=== PATIENT | female | born 1975 | race Caucasian/White ===

== ENCOUNTER 2017-04-12 06:41 | Day surgery (SDC) | payer OTHER ==
[2017-04-11 10:42] LABS: CHLORIDE,CL 110 mmol/L (98-110); SODIUM,NA 139 mmol/L (136-146)
[~2017-04-12 06:41] MED LIST: Lactated Ringers 1,000 ML IV SCH; Sodium Chloride 0.9% 10 ML Syringe FLUSH PRN; Sodium Chloride 0.9% 2.5 ML Syringe FLUSH PRN; ceFAZolin 2 GM in Premix Bag 1 BAG IV ONE
[2017-04-12] MEDS ORDERED: Scopolamine 1.5 MG Transdermal Patch TRDERM PRN (08:00)
[2017-04-12] MEDS ORDERED: Acetaminophen 1,000 MG in Premix Bag 1 BAG IV SCH (08:00)
--- NOTE | 2017-04-12 08:01 | PCM.PREANE ---
Preanesthetic Assessment - Anesthesia/Transfusion/Family Hx Anesthesia History: Prior Anesthesia Without Reaction Other Type of Anesthesia Reaction Comment: states she woke up during her breast lumpectomy Family History of Anesthesia Reaction: No Transfusion History: No Prior Transfusion(s) Intubation History: Unknown - Review of Systems General: No Symptoms Pulmonary: No Symptoms Cardiovascular: No Symptoms Gastrointestinal: No Symptoms Neurological: No Symptoms Other: Reports: None - Physical Assessment O2 Sat by Pulse Oximetry: 100 Respiratory Rate: 16 Vital Signs: Last Vital Signs Temp 36.2 C 04/12/17 07:29 Pulse 72 04/12/17 07:29 Resp 16 04/12/17 07:29 BP 102/61 04/12/17 07:29 Pulse Ox 100 04/12/17 07:29 Height: 1.63 m Weight: 116.12 kg ASA Class: 2 Mental Status: Alert & Oriented x3 Airway Class: Mallampati = 2 Dentition: Reports: Normal Dentition Thyro-Mental Finger Breadths: 3 Mouth Opening Finger Breadths: 2 ROM/Head Extension: Full Lungs: Clear to Auscultation, Normal Respiratory Effort Cardiovascular: Regular Rate, Regular Rhythm - Lab Values: Laboratory Last Values WBC 6.86 K/uL (4.0-11.0) 04/11/17 09:53 RBC 4.61 M/uL (4.30-5.90) 04/11/17 09:53 Hgb 12.2 g/dL (12.0-16.0) 04/11/17 09:53 Hct 38.8 % (36.0-46.0) 04/11/17 09:53 MCV 84.2 fL (80.0-98.0) 04/11/17 09:53 MCH 26.5 pg (27.0-32.0) L 04/11/17 09:53 MCHC 31.4 g/dL (31.0-37.0) 04/11/17 09:53 RDW Std Deviation 51.3 fl (28.0-62.0) 04/11/17 09:53 RDW Coeff of Miguel 17 % (11.0-15.0) H 04/11/17 09:53 Plt Count 348 K/uL (150-400) 04/11/17 09:53 MPV 9.70 fL (7.40-12.00) 04/11/17 09:53 Nucleated RBC % 0.0 /100WBC 04/11/17 09:53 Nucleated RBCs # 0 K/uL 04/11/17 09:53 Sodium 139 mmol/L (136-146) 04/11/17 09:53 Potassium 4.1 mmol/L (3.5-5.1) 04/11/17 09:53 Chloride 110 mmol/L (98-110) 04/11/17 09:53 Carbon Dioxide 22 mmol/L (21-31) 04/11/17 09:53 BUN 7 mg/dL (6.0-23.0) 04/11/17 09:53 Creatinine 0.8 mg/dL (0.6-1.5) 04/11/17 09:53 Est Cr Clr Drug Dosing 80.72 mL/min 04/11/17 09:53 Estimated GFR (MDRD) > 60.0 ml/min 04/11/17 09:53 Glucose 98 mg/dL (60-110) 04/11/17 09:53 Calcium 8.4 mg/dL (8.8-10.8) L 04/11/17 09:53 HCG, Qual NEGATIVE (NEG) 04/11/17 09:53 Blood Type A POSITIVE 04/11/17 09:53 Antibody Screen NEGATIVE 04/11/17 09:53 - Allergies Allergies/Adverse Reactions: Allergies Allergy/AdvReac Type Severity Reaction Status Date / Time No Known Allergies Allergy Verified 04/10/17 08:49 - Blood Blood Available: No - Anesthesia Plan Pre-Op Medication Ordered: None - Acknowledgements Anesthesia Type Planned: General Anesthesia Pt an Appropriate Candidate for the Planned Anesthesia: Yes Alternatives and Risks of Anesthesia Discussed w Pt/Guardian: Yes Pt/Guardian Understands and Agrees with Anesthesia Plan: Yes PreAnesthesia Questionnaire Gastrointestinal History: Reports: Other (See Below) Other Gastrointestinal History: occasional heartburn Genitourinary History: Reports: None RN LPN CNA History: Reports: Dysfunctional Uterine Bleeding, Fibroids, Psychiatric History: Reports: Anxiety, Depression, PTSD Endocrine/Metabolic History: Reports: Obesity/BMI 30+ (BMI 43.9) Oncologic (Cancer) History: Reports: None Dermatologic History: Reports: Eczema - Past Surgical History Head Surgeries/Procedures: Reports: None Female Surgical History: Reports: Breast Biopsy, Tubal Ligation Oncologic Surgical History: Reports: Biopsy of Breast - SUBSTANCE USE Smoking Status *Q: Never Smoker Recreational Drug Use History: No - HOME MEDS Home Medications: Home Meds ALPRAZolam [Xanax] 0.25 mg PO ASDIRECTED 04/10/17 [History] DULoxetine [Cymbalta] 60 mg PO DAILY 04/10/17 [History] cloNIDine HCl [Clonidine HCl ER] 0.1 mg PO ACLUNCH PRN 04/10/17 [History] - CURRENT (IN HOUSE) MEDS Current Meds: Current Medications Lactated Ringer's (Ringers, Lactated) 1,000 mls @ 500 mls/hr IV .BOLUS [facility] Last Admin: 04/12/17 07:31 Dose: 500 mls/hr Acetaminophen 1,000 mg/ Premix 100 mls @ 400 mls/hr IV .ONETIME [facility] Scopolamine (Transderm-Scop) 1.5 mg TRDERM .ONETIME PRN PRN Reason: Post Op Nausea Sodium Chloride (Saline Flush) 10 ml FLUSH ASDIRECTED PRN PRN Reason: Keep Vein Open Sodium Chloride (Saline Flush) 2.5 ml FLUSH ASDIRECTED PRN PRN Reason: Keep Vein Open Discontinued Medications Cefazolin Sodium/Dextrose 2 gm (/ Premix) 50 mls @ 100 mls/hr IV ONETIME ONE Stop: 04/11/17 09:27
[2017-04-12] MEDS ORDERED: fentaNYL 100 MCG/2 ML SDV ONE (08:26)
[2017-04-12] MEDS ORDERED: Midazolam 1 MG/ML 2 ML SDV ONE (08:26)
[2017-04-12] MEDS ORDERED: Propofol 200 MG/20 ML SDV ONE (08:26)
[2017-04-12] MEDS ORDERED: diphenhydrAMINE 50 MG/ML SDV ONE (08:26)
[2017-04-12] MEDS ORDERED: Lidocaine 2% 5 ML SDV ONE (08:26)
[2017-04-12] MEDS ORDERED: Rocuronium 10 MG/ML 10 ML Syringe ONE (08:26)
[2017-04-12] MEDS ORDERED: Dexamethasone 4 MG/ML 5 ML MDV ONE (08:26)
[2017-04-12] MEDS ORDERED: Ondansetron 4 MG/2 ML SDV ONE (08:26)
[2017-04-12] MEDS ORDERED: HYDROmorphone 2 MG/ML Syringe ONE ×2 (08:26→10:56)
[2017-04-12] MEDS ORDERED: fentaNYL 100 MCG/2 ML SDV IVPUSH PRN (08:35)
[2017-04-12] MEDS ORDERED: Fluorescein 5 ML Vial IV ONE (08:42)
[2017-04-12] MEDS ORDERED: Octyl 2-Cyanoacrylate 1 Tube TOP ONE (08:42)
[2017-04-12] MEDS ORDERED: Ketorolac 30 MG/ML SDV ONE (12:13)
[2017-04-12] MEDS ORDERED: Ketorolac 30 MG/ML SDV IVPUSH PRN (12:26)
[2017-04-12] MEDS ORDERED: Morphine 4 MG/ML Syringe IVPUSH PRN (12:26)
[2017-04-12] MEDS ORDERED: Morphine 2 MG/ML Syringe IVPUSH PRN (12:26)
[2017-04-12] MEDS ORDERED: Ketorolac 30 MG/ML SDV IVPUSH ONE (12:26)
--- NOTE | 2017-04-12 12:31 | PCM.OPNOTE ---
- General Post-Op/Procedure Note Date of Surgery/Procedure: 04/12/17 Operative Procedure(s): TLH Pre Op Diagnosis: Bleeding Post-Op Diagnosis: Same Anesthesia Technique: General ET Tube Primary Surgeon: Fernando Tapia Governor Assembler: Mckayla Coley EBL in mLs: 300 Complications: None Condition: Good
[2017-04-12] MEDS: Acetaminophen/oxyCODONE 325-5 MG Tab PO PRN ×2 (14:43→18:48)
[2017-04-12] MEDS: Ondansetron 4 MG/2 ML SDV IVPUSH PRN (15:02)
[2017-04-12] MEDS ORDERED: ALPRAZolam 0.25 MG Tab PO PRN (15:55)
[2017-04-12] MEDS: DULoxetine 60 MG Cap PO SCH (16:18)
[2017-04-12] MEDS: ALPRAZolam 0.25 MG Tab PO SCH (16:18)
--- NOTE | 2017-04-12 16:25 | PCM48HPAN ---
Post Anesthesia Note - EVALUATION WITHIN 48HRS OF ANESTHETIC Vital Signs in Normal Range: Yes Patient Participated in Evaluation: Yes Respiratory Function Stable: Yes Airway Patent: Yes Cardiovascular Function Stable: Yes Hydration Status Stable: Yes Pain Control Satisfactory: Yes Nausea and Vomiting Control Satisfactory: Yes Mental Status Recovered: Yes
--- NOTE | 2017-04-12 18:41 | OR ---
SURGEON: Fernando Tapia MD DATE OF PROCEDURE: PREOPERATIVE DIAGNOSIS: Menometrorrhagia fibroid. POSTOPERATIVE DIAGNOSIS: Menometrorrhagia fibroid. OPERATION: Total laparoscopic hysterectomy, laparoscopic bilateral salpingectomy, and preserving both ovary and cystoscopy. CERTIFIED HYPERBARIC TECHNOLOGIST: LOLI Oconnro ANESTHESIA: General endotracheal intubation, Ms. Goss and Dr. Jordan. ESTIMATED BLOOD LOSS: 300 mL. COMPLICATIONS: None. FINDING: Uterus is about 13 week size. INDICATION FOR SURGERY: Do refer to the admit note. PROCEDURE IN DETAIL: The patient was brought to the OR, properly identified, and after adequate level of general anesthesia, the patient was placed in lithotomy position with an access to the abdomen and the vagina. The patient was prepped and draped in sterile fashion as usual. Koroma catheter was placed in the bladder for drainage and the uterine manipulator colpotomizer was placed in place and then the operation shifted abdominally. Stab wound done beneath the umbilicus. The Veress needle was placed in the peritoneal cavity and that cavity insufflated 6 L of carbon dioxide. The skin incision is large to accommodate 5 mm trocar and using the Visiport technique, the central trocar was placed under direct vision. Once this was done, 10 to 12 trocar was placed in the left iliac fossa and two 5 mm trocar, one suprapubically, one in the right iliac crest and done under direct vision. The patient was placed in steep Trendelenburg. The operation was started by identifying the landmark of the pelvis using the DARLINE-7 Harmonic scapula. The superior pedicle coagulated, transected preserving both ovary and both tubes included with the specimen. Then, the round ligament coagulated and transected in the same manner and then the anterior leaf of the broad ligament dissected downward medially pushing the bladder completely away from the operative field and then uterine vessel was coagulated and transected at the level of the internal rings of the manipulator. Once these are done, then circular incision and the vaginal mucosa around the tip of the Antonio surgical manipulator was done, detaching the cervix from its attachment to the vagina. Cervix and uterus and both tubes removed vaginally. Pneumoperitoneum re- established by placing vaginal pack in the vagina. Thorough irrigation of the pelvis was done. There was an area of oozing from the vaginal cuff and then we proceeded to close the vaginal cuff with 2-0 PDS, interrupted sutures and the bleeding stopped. Then thorough irrigation of the pelvis was done. There was no oozing, no bleeding. Both ovaries looked normal and while we were doing this, we asked the anesthesia people to give the patient fluorescein and after deflating the abdomen, cystoscopy was performed. The bladder was intact. Both ureteric orifices were seen with the dye coming from both of them. Thus, the patency of both ureters verified satisfied with these findings. The instrument hardware retrieved from the abdomen and the vagina and the multiple laparoscopic incisions closed in layers and the procedures ended. The patient tolerated the procedure well, went to recovery room in stable general condition. PRIMARY SURGEON: SECONDARY SURGEON: REASON CERTIFIED HYPERBARIC TECHNOLOGIST WAS NECESSARY: ROLE OF CERTIFIED HYPERBARIC TECHNOLOGIST: OSMEL OCONNOR /[id number]
[2017-04-12] MEDS: Promethazine 25 MG/ML SDV IM PRN (18:48)
[2017-04-13] MEDS: Acetaminophen/oxyCODONE 325-5 MG Tab PO PRN ×3 (00:12→09:02)
[2017-04-13] MEDS: Ondansetron 4 MG/2 ML SDV IVPUSH PRN (04:54)
[2017-04-13 05:29] LABS: CHLORIDE,CL 110 mmol/L (98-110); SODIUM,NA 141 mmol/L (136-146)
[2017-04-13] MEDS: DULoxetine 60 MG Cap PO SCH (09:02)
[2017-04-13] MEDS: ALPRAZolam 0.25 MG Tab PO SCH (09:02)
[2017-04-13] MEDS: Promethazine 25 MG/ML SDV IM PRN (09:04)
--- NOTE | 2017-04-13 10:41 | PCM.SURGPN ---
- General Info Date of Service: 04/13/17 POD#: 1 Functional Status: Reports: Pain Controlled - Review of Systems General: Reports: No Symptoms HEENT: Reports: No Symptoms Pulmonary: Reports: No Symptoms Cardiovascular: Reports: No Symptoms Gastrointestinal: Reports: No Symptoms Genitourinary: Reports: No Symptoms Musculoskeletal: Reports: No Symptoms Skin: Reports: No Symptoms Neurological: Reports: No Symptoms Psychiatric: Reports: No Symptoms - Patient Data Vitals - Most Recent: Last Vital Signs Temp 37.2 C 04/13/17 03:50 Pulse 78 04/13/17 03:50 Resp 18 04/13/17 03:50 BP 116/55 L 04/13/17 03:50 Pulse Ox 97 04/13/17 03:50 Weight - Most Recent: 116.12 kg Lab Results Last 24 Hrs: Laboratory Results - last 24 hr 04/13/17 04/13/17 Range/Units 04:38 04:38 WBC 7.15 (4.0-11.0) K/uL RBC 3.69 L (4.30-5.90) M/uL Hgb 9.6 L (12.0-16.0) g/dL Hct 31.3 L (36.0-46.0) % MCV 84.8 (80.0-98.0) fL MCH 26.0 L (27.0-32.0) pg MCHC 30.7 L (31.0-37.0) g/dL RDW Std Deviation 53.5 (28.0-62.0) fl RDW Coeff of Miguel 17 H (11.0-15.0) % Plt Count 324 (150-400) K/uL MPV 9.80 (7.40-12.00) fL Neut % (Auto) 79.0 (48.0-80.0) % Lymph % (Auto) 15.7 L (16.0-40.0) % Love % (Auto) 5.3 (0.0-15.0) % Eos % (Auto) 0.0 (0.0-7.0) % Baso % (Auto) 0.0 (0.0-1.5) % Neut # (Auto) 5.7 (1.4-5.7) K/uL Lymph # (Auto) 1.1 (0.6-2.4) K/uL Love # (Auto) 0.4 (0.0-0.8) K/uL Eos # (Auto) 0.0 (0.0-0.7) K/uL Baso # (Auto) 0.0 (0.0-0.1) K/uL Nucleated RBC % 0.0 /100WBC Nucleated RBCs # 0 K/uL Sodium 141 (136-146) mmol/L Potassium 4.2 (3.5-5.1) mmol/L Chloride 110 (98-110) mmol/L Carbon Dioxide 22 (21-31) mmol/L BUN 9 (6.0-23.0) mg/dL Creatinine 0.8 (0.6-1.5) mg/dL Est Cr Clr Drug Dosing 80.72 mL/min Estimated GFR (MDRD) > 60.0 ml/min Glucose 113 H (60-110) mg/dL Calcium 8.3 L (8.8-10.8) mg/dL Med Orders - Current: Current Medications Alprazolam (Xanax) 0.25 mg PO DAILY [facility] Last Admin: 04/13/17 09:02 Dose: 0.25 mg Alprazolam (Xanax) 1 mg PO BEDTIME PRN PRN Reason: Anxiety Last Admin: 04/12/17 20:18 Dose: 1 mg Duloxetine HCl (Cymbalta) 60 mg PO DAILY [facility] Last Admin: 04/13/17 09:02 Dose: 60 mg Fentanyl (Sublimaze) 50 mcg IVPUSH .Q5MIN PRN PRN Reason: Pain Lactated Ringer's (Ringers, Lactated) 1,000 mls @ 500 mls/hr IV .BOLUS [facility] Last Admin: 04/12/17 07:31 Dose: 500 mls/hr Acetaminophen 1,000 mg/ Premix 100 mls @ 400 mls/hr IV .ONETIME [facility] Last Admin: 04/12/17 08:30 Dose: 400 mls/hr Ketorolac Tromethamine (Toradol) 30 mg IVPUSH Q6H PRN PRN Reason: Pain (severe 7-10) Stop: 04/17/17 12:26 Morphine Sulfate (Morphine) 2 mg IVPUSH Q2H PRN PRN Reason: Pain (severe 7-10) Last Admin: 04/12/17 20:11 Dose: 2 mg Morphine Sulfate (Morphine) 4 mg IVPUSH Q2H PRN PRN Reason: Pain (severe 7-10) Ondansetron HCl (Zofran) 4 mg IVPUSH Q6H PRN PRN Reason: Nausea/Vomiting Last Admin: 04/13/17 04:54 Dose: 4 mg Oxycodone/Acetaminophen (Percocet 325-5 Mg) 1 tab PO Q4H PRN PRN Reason: Pain (moderate 4-6) Last Admin: 04/13/17 09:02 Dose: 1 tab Oxycodone/Acetaminophen (Percocet 325-5 Mg) 2 tab PO Q4H PRN PRN Reason: Pain (moderate 4-6) Last Admin: 04/13/17 00:12 Dose: 2 tab Promethazine HCl (Phenergan) 25 mg IM Q6H PRN PRN Reason: Nausea/Vomiting Last Admin: 04/13/17 09:04 Dose: 25 mg Scopolamine (Transderm-Scop) 1.5 mg TRDERM .ONETIME PRN PRN Reason: Post Op Nausea Last Admin: 04/12/17 08:30 Dose: 1.5 mg Sodium Chloride (Saline Flush) 10 ml FLUSH ASDIRECTED PRN PRN Reason: Keep Vein Open Sodium Chloride (Saline Flush) 2.5 ml FLUSH ASDIRECTED PRN PRN Reason: Keep Vein Open Discontinued Medications Dexamethasone (Dexamethasone) Confirm Administered Dose 20 mg .ROUTE .STK-MED ONE Stop: 04/12/17 08:27 Diphenhydramine HCl (Benadryl) Confirm Administered Dose 50 mg .ROUTE .STK-MED ONE Stop: 04/12/17 08:27 Fentanyl (Sublimaze) Confirm Administered Dose 100 mcg .ROUTE .STK-MED ONE Stop: 04/12/17 08:27 Hydromorphone HCl (Dilaudid) Confirm Administered Dose 2 mg .ROUTE .STK-MED ONE Stop: 04/12/17 08:27 Hydromorphone HCl (Dilaudid) Confirm Administered Dose 2 mg .ROUTE .STK-MED ONE Stop: 04/12/17 10:57 Cefazolin Sodium/Dextrose 2 gm (/ Premix) 50 mls @ 100 mls/hr IV ONETIME ONE Stop: 04/11/17 09:27 Last Admin: 04/12/17 14:22 Dose: Not Given Ketorolac Tromethamine (Toradol) Confirm Administered Dose 30 mg .ROUTE .STK- MED ONE Stop: 04/12/17 12:14 Ketorolac Tromethamine (Toradol) 30 mg IVPUSH ONETIME ONE Stop: 04/12/17 12:27 Last Admin: 04/12/17 14:22 Dose: Not Given Lidocaine (Xylocaine-Mpf 2%) Confirm Administered Dose 5 ml .ROUTE .STK-MED ONE Stop: 04/12/17 08:27 Midazolam HCl (Versed 1 Mg/Ml) Confirm Administered Dose 2 mg .ROUTE .STK-MED ONE Stop: 04/12/17 08:27 Ondansetron HCl (Zofran) Confirm Administered Dose 4 mg .ROUTE .STK-MED ONE Stop: 04/12/17 08:27 Propofol (Diprivan 20 Ml) Confirm Administered Dose 200 mg .ROUTE .STK-MED ONE Stop: 04/12/17 08:27 Rocuronium [employer] (Zemuron) Confirm Administered Dose 100 mg .ROUTE .STK-MED ONE Stop: 04/12/17 08:27 - Exam Wound/Incisions: Healing Well General: Alert, Oriented HEENT: Pupils Equal Neck: Supple Lungs: Clear to Auscultation, Normal Respiratory Effort Cardiovascular: Regular Rate, Regular Rhythm GI/Abdominal Exam: Normal Bowel Sounds, Soft, Non-Tender, No Organomegaly, No Distention, No Abnormal Bruit, No Mass, Pelvis Stable Extremities: Normal Inspection, Normal Range of Motion, Non-Tender, No Pedal Edema, Normal Capillary Refill Skin: Warm, Dry, Intact Neurological: No New Focal Deficit Psy/Mental Status: Alert, Normal Affect, Normal Mood - Problem List Review Problem List Initiated/Reviewed/Updated: Yes - My Orders Last 24 Hours: Active Orders 24 hr Category Date Time Status Patient Status [ADT] Routine ADT 04/12/17 12:26 Active Antiembolic Devices [RC] PER UNIT ROUTINE Care 04/12/17 12:27 Active Notify Provider Vital Signs [RC] ASDIRECTED Care 04/12/17 12:26 Active Oxygen Therapy [RC] ASDIRECTED Care 04/12/17 12:26 Active RT Incentive Spirometry [RC] Q2HWA Care 04/12/17 12:26 Active Up With Assistance [RC] PER UNIT ROUTINE Care 04/12/17 12:26 Active Up ad Ita [RC] PER UNIT ROUTINE Care 04/12/17 12:26 Active Vital Signs [RC] PER UNIT ROUTINE Care 04/12/17 12:26 Active Regular Diet [DIET] Diet 04/12/17 Dinner Active ALPRAZolam [Xanax] Med 04/12/17 16:00 Active 0.25 mg PO DAILY ALPRAZolam [Xanax] Med 04/12/17 15:55 Active 1 mg PO BEDTIME PRN Acetaminophen/oxyCODONE [Percocet 325-5 MG] Med 04/12/17 12:26 Active 1 tab PO Q4H PRN Acetaminophen/oxyCODONE [Percocet 325-5 MG] Med 04/12/17 12:26 Active 2 tab PO Q4H PRN DULoxetine [Cymbalta] Med 04/12/17 16:00 Active 60 mg PO DAILY Ketorolac [Toradol] Med 04/12/17 12:26 Active 30 mg IVPUSH Q6H PRN Morphine Med 04/12/17 12:26 Active 2 mg IVPUSH Q2H PRN Morphine Med 04/12/17 12:26 Active 4 mg IVPUSH Q2H PRN Ondansetron [Zofran] Med 04/12/17 12:26 Active 4 mg IVPUSH Q6H PRN Promethazine [Phenergan] Med 04/12/17 12:26 Active 25 mg IM Q6H PRN Peripheral IV Discontinue [OM.PC] Routine Oth 04/12/17 12:26 Ordered Sequential Compression Device [OM.PC] Per Unit Routine Oth 04/12/17 12:26 Ordered Resuscitation Status Routine Resus Stat 04/12/17 12:26 Ordered Medication Orders Alprazolam (Xanax) 0.25 mg PO DAILY [facility] Last Admin: 04/13/17 09:02 Dose: 0.25 mg Admin: 04/12/17 16:18 Dose: 0.25 mg Alprazolam (Xanax) 1 mg PO BEDTIME PRN PRN Reason: Anxiety Last Admin: 04/12/17 20:18 Dose: 1 mg Duloxetine HCl (Cymbalta) 60 mg PO DAILY C[facility] Last Admin: 04/13/17 09:02 Dose: 60 mg Admin: 04/12/17 16:18 Dose: 60 mg Fentanyl (Sublimaze) 50 mcg IVPUSH .Q5MIN PRN PRN Reason: Pain Lactated Ringer's (Ringers, Lactated) 1,000 mls @ 500 mls/hr IV .BOLUS CASSIDY Last Admin: 04/12/17 07:31 Dose: 500 mls/hr Acetaminophen 1,000 mg/ Premix 100 mls @ 400 mls/hr IV .ONETIME [facility] Last Admin: 04/12/17 08:30 Dose: 400 mls/hr Ketorolac Tromethamine (Toradol) 30 mg IVPUSH Q6H PRN PRN Reason: Pain (severe 7-10) Stop: 04/17/17 12:26 Morphine Sulfate (Morphine) 2 mg IVPUSH Q2H PRN PRN Reason: Pain (severe 7-10) Last Admin: 04/12/17 20:11 Dose: 2 mg Morphine Sulfate (Morphine) 4 mg IVPUSH Q2H PRN PRN Reason: Pain (severe 7-10) Ondansetron HCl (Zofran) 4 mg IVPUSH Q6H PRN PRN Reason: Nausea/Vomiting Last Admin: 04/13/17 04:54 Dose: 4 mg Admin: 04/12/17 15:02 Dose: 4 mg Oxycodone/Acetaminophen (Percocet 325-5 Mg) 1 tab PO Q4H PRN PRN Reason: Pain (moderate 4-6) Last Admin: 04/13/17 09:02 Dose: 1 tab Admin: 04/13/17 04:51 Dose: 1 tab Admin: 04/12/17 14:43 Dose: 1 tab Oxycodone/Acetaminophen (Percocet 325-5 Mg) 2 tab PO Q4H PRN PRN Reason: Pain (moderate 4-6) Last Admin: 04/13/17 00:12 Dose: 2 tab Admin: 04/12/17 18:48 Dose: 2 tab Promethazine HCl (Phenergan) 25 mg IM Q6H PRN PRN Reason: Nausea/Vomiting Last Admin: 04/13/17 09:04 Dose: 25 mg Admin: 04/12/17 18:48 Dose: 25 mg Scopolamine (Transderm-Scop) 1.5 mg TRDERM .ONETIME PRN PRN Reason: Post Op Nausea Last Admin: 04/12/17 08:30 Dose: 1.5 mg Sodium Chloride (Saline Flush) 10 ml FLUSH ASDIRECTED PRN PRN Reason: Keep Vein Open Sodium Chloride (Saline Flush) 2.5 ml FLUSH ASDIRECTED PRN PRN Reason: Keep Vein Open - Assessment Assessment (Free Text/Narrative):: Status post total laparoscopic hysterectomy postoperative day #1 the patient is doing well her vital signs stable there is no vaginal bleeding she is on regular diet she is ambulatory passing gas and voiding without any problem. Her lab work is within normal limits - Plan Plan (Free Text/Narrative):: Patient will be discharged today the post hysterectomy instruction is given to the patient a Percocet 7.5/325 prescription is given for the patient for postoperative pain follow-up examination one week
--- NOTE | 2017-04-13 10:42 | PCM.DCSUM1 ---
Discharge Summary - Discharge Data Discharge Date: 04/13/17 Discharge Disposition: Home, Self-Care 01 Condition: Good - Patient Summary/Data Operative Procedure(s) Performed: TLH - Patient Instructions Diet: Usual Diet as Tolerated Activity: As Tolerated Driving: Do Not Drive Showering/Bathing: May Shower Notify Provider of: Fever, Increased Pain - Discharge Plan Prescriptions/Med Rec: oxyCODONE HCl/Acetaminophen [Percocet 7.5-325 mg Tablet] 1 each PO Q4H PRN #30 tablet PRN Reason: Pain Home Medications: Home Meds ALPRAZolam [Xanax] 0.25 tab PO QAM 04/10/17 [History] DULoxetine [Cymbalta] 60 mg PO DAILY 04/10/17 [History] cloNIDine HCl [Clonidine HCl ER] 0.05 mg PO BID 04/10/17 [History] ALPRAZolam [Xanax] 1 mg PO BEDTIME PRN 04/12/17 [History] oxyCODONE HCl/Acetaminophen [Percocet 7.5-325 mg Tablet] 1 each PO Q4H PRN #30 tablet 04/13/17 [Rx] Patient Handouts: Acetaminophen; Oxycodone tablets, Laparoscopically Assisted Vaginal Hysterectomy Referrals: Fernando Tapia MD [Physician] - 04/20/17 10:45 am - General Info Date of Service: 04/13/17 Functional Status: Reports: Pain Controlled - Review of Systems General: Reports: No Symptoms HEENT: Reports: No Symptoms Pulmonary: Reports: No Symptoms Cardiovascular: Reports: No Symptoms Gastrointestinal: Reports: No Symptoms Genitourinary: Reports: No Symptoms Musculoskeletal: Reports: No Symptoms Skin: Reports: No Symptoms Neurological: Reports: No Symptoms Psychiatric: Reports: No Symptoms - Patient Data Vitals - Most Recent: Last Vital Signs Temp 37.2 C 04/13/17 03:50 Pulse 78 04/13/17 03:50 Resp 18 04/13/17 03:50 BP 116/55 L 04/13/17 03:50 Pulse Ox 97 04/13/17 03:50 Weight - Most Recent: 116.12 kg Lab Results - Last 24 hrs: Laboratory Results - last 24 hr 04/13/17 04/13/17 Range/Units 04:38 04:38 WBC 7.15 (4.0-11.0) K/uL RBC 3.69 L (4.30-5.90) M/uL Hgb 9.6 L (12.0-16.0) g/dL Hct 31.3 L (36.0-46.0) % MCV 84.8 (80.0-98.0) fL MCH 26.0 L (27.0-32.0) pg MCHC 30.7 L (31.0-37.0) g/dL RDW Std Deviation 53.5 (28.0-62.0) fl RDW Coeff of Miguel 17 H (11.0-15.0) % Plt Count 324 (150-400) K/uL MPV 9.80 (7.40-12.00) fL Neut % (Auto) 79.0 (48.0-80.0) % Lymph % (Auto) 15.7 L (16.0-40.0) % Davis % (Auto) 5.3 (0.0-15.0) % Eos % (Auto) 0.0 (0.0-7.0) % Baso % (Auto) 0.0 (0.0-1.5) % Neut # (Auto) 5.7 (1.4-5.7) K/uL Lymph # (Auto) 1.1 (0.6-2.4) K/uL Davis # (Auto) 0.4 (0.0-0.8) K/uL Eos # (Auto) 0.0 (0.0-0.7) K/uL Baso # (Auto) 0.0 (0.0-0.1) K/uL Nucleated RBC % 0.0 /100WBC Nucleated RBCs # 0 K/uL Sodium 141 (136-146) mmol/L Potassium 4.2 (3.5-5.1) mmol/L Chloride 110 (98-110) mmol/L Carbon Dioxide 22 (21-31) mmol/L BUN 9 (6.0-23.0) mg/dL Creatinine 0.8 (0.6-1.5) mg/dL Est Cr Clr Drug Dosing 80.72 mL/min Estimated GFR (MDRD) > 60.0 ml/min Glucose 113 H (60-110) mg/dL Calcium 8.3 L (8.8-10.8) mg/dL Med Orders - Current: Current Medications Alprazolam (Xanax) 0.25 mg PO DAILY [facility] Last Admin: 04/13/17 09:02 Dose: 0.25 mg Alprazolam (Xanax) 1 mg PO BEDTIME PRN PRN Reason: Anxiety Last Admin: 04/12/17 20:18 Dose: 1 mg Duloxetine HCl (Cymbalta) 60 mg PO DAILY [facility] Last Admin: 04/13/17 09:02 Dose: 60 mg Fentanyl (Sublimaze) 50 mcg IVPUSH .Q5MIN PRN PRN Reason: Pain Lactated Ringer's (Ringers, Lactated) 1,000 mls @ 500 mls/hr IV .BOLUS [facility] Last Admin: 04/12/17 07:31 Dose: 500 mls/hr Acetaminophen 1,000 mg/ Premix 100 mls @ 400 mls/hr IV .ONETIME [facility] Last Admin: 04/12/17 08:30 Dose: 400 mls/hr Ketorolac Tromethamine (Toradol) 30 mg IVPUSH Q6H PRN PRN Reason: Pain (severe 7-10) Stop: 04/17/17 12:26 Morphine Sulfate (Morphine) 2 mg IVPUSH Q2H PRN PRN Reason: Pain (severe 7-10) Last Admin: 04/12/17 20:11 Dose: 2 mg Morphine Sulfate (Morphine) 4 mg IVPUSH Q2H PRN PRN Reason: Pain (severe 7-10) Ondansetron HCl (Zofran) 4 mg IVPUSH Q6H PRN PRN Reason: Nausea/Vomiting Last Admin: 04/13/17 04:54 Dose: 4 mg Oxycodone/Acetaminophen (Percocet 325-5 Mg) 1 tab PO Q4H PRN PRN Reason: Pain (moderate 4-6) Last Admin: 04/13/17 09:02 Dose: 1 tab Oxycodone/Acetaminophen (Percocet 325-5 Mg) 2 tab PO Q4H PRN PRN Reason: Pain (moderate 4-6) Last Admin: 04/13/17 00:12 Dose: 2 tab Promethazine HCl (Phenergan) 25 mg IM Q6H PRN PRN Reason: Nausea/Vomiting Last Admin: 04/13/17 09:04 Dose: 25 mg Scopolamine (Transderm-Scop) 1.5 mg TRDERM .ONETIME PRN PRN Reason: Post Op Nausea Last Admin: 04/12/17 08:30 Dose: 1.5 mg Sodium Chloride (Saline Flush) 10 ml FLUSH ASDIRECTED PRN PRN Reason: Keep Vein Open Sodium Chloride (Saline Flush) 2.5 ml FLUSH ASDIRECTED PRN PRN Reason: Keep Vein Open Discontinued Medications Dexamethasone (Dexamethasone) Confirm Administered Dose 20 mg .ROUTE .STK-MED ONE Stop: 04/12/17 08:27 Diphenhydramine HCl (Benadryl) Confirm Administered Dose 50 mg .ROUTE .STK-MED ONE Stop: 04/12/17 08:27 Fentanyl (Sublimaze) Confirm Administered Dose 100 mcg .ROUTE .STK-MED ONE Stop: 04/12/17 08:27 Hydromorphone HCl (Dilaudid) Confirm Administered Dose 2 mg .ROUTE .STK-MED ONE Stop: 04/12/17 08:27 Hydromorphone HCl (Dilaudid) Confirm Administered Dose 2 mg .ROUTE .STK-MED ONE Stop: 04/12/17 10:57 Cefazolin Sodium/Dextrose 2 gm (/ Premix) 50 mls @ 100 mls/hr IV ONETIME ONE Stop: 04/11/17 09:27 Last Admin: 04/12/17 14:22 Dose: Not Given Ketorolac Tromethamine (Toradol) Confirm Administered Dose 30 mg .ROUTE .STK- MED ONE Stop: 04/12/17 12:14 Ketorolac Tromethamine (Toradol) 30 mg IVPUSH ONETIME ONE Stop: 04/12/17 12:27 Last Admin: 04/12/17 14:22 Dose: Not Given Lidocaine (Xylocaine-Mpf 2%) Confirm Administered Dose 5 ml .ROUTE .STK-MED ONE Stop: 04/12/17 08:27 Midazolam HCl (Versed 1 Mg/Ml) Confirm Administered Dose 2 mg .ROUTE .STK-MED ONE Stop: 04/12/17 08:27 Ondansetron HCl (Zofran) Confirm Administered Dose 4 mg .ROUTE .STK-MED ONE Stop: 04/12/17 08:27 Propofol (Diprivan 20 Ml) Confirm Administered Dose 200 mg .ROUTE .STK-MED ONE Stop: 04/12/17 08:27 Rocuronium [place] (Zemuron) Confirm Administered Dose 100 mg .ROUTE .STK-MED ONE Stop: 04/12/17 08:27 - Exam General: Reports: Alert, Oriented HEENT: Reports: Pupils Equal, Pupils Reactive, EOMI, Mucous Membr. Moist/[place]: Reports: Supple Lungs: Reports: Clear to Auscultation, Normal Respiratory Effort Cardiovascular: Reports: Regular Rate, Regular Rhythm GI/Abdominal Exam: Normal Bowel Sounds, Soft, Non-Tender, No Organomegaly, No Distention, No Abnormal Bruit, No Mass, Pelvis Stable (Female) Exam: Normal External Exam, Normal Speculum Exam, Normal Bimanual Exam Rectal (Female) Exam: Normal Exam, Normal Rectal Tone Back Exam: Reports: Normal Inspection, Full Range of Motion Extremities: Normal Inspection, Normal Range of Motion, Non-Tender, No Pedal Edema, Normal Capillary Refill Skin: Reports: Warm, Dry, Intact Wound/Incisions: Reports: Healing Well Neurological: Reports: No New Focal Deficit Psy/Mental Status: Reports: Alert, Normal Affect, Normal Mood *Q Meaningful Use (DIS) - VTE *Q VTE Criteria *Q: - Stroke *Q Stroke Criteria *Q: - AMI *Q AMI Criteria *Q:
== END 2017-04-13 10:36 | disposition home or self-care (01) ==
LOC: MW.MS 06:41 → MW.SDS 06:41
PROVIDERS: ATTEND Obstetrics & Gynecology
DX: D25.1 Intramural leiomyoma of uterus (principal); N88.8 Other specified noninflammatory disorders of cervix uteri; R23.4 Changes in skin texture; N83.8 Other noninflammatory disorders of ovary, fallopian tube and broad ligament; F41.9 Anxiety disorder, unspecified; F32.9 Major depressive disorder, single episode, unspecified; Z98.51 Tubal ligation status; Z79.899 Other long term (current) drug therapy
CPT/HCPCS: 36415; 58571; 80048; 84703; 85025; 85027; 86850; 86900; 86901; 88307; 93005; A9270; J1100; J1170; J1200; J1885; J2250; J2270; J2405; J2550; J3010; J7120; 00840; J2704